=== PATIENT | male | born 1995 ===

== ENCOUNTER 2018-06-28 11:14 | Outpatient (CLI) | payer OTHER ==
[~2018-06-28] VITALS: Ht 185.4 cm; Wt 102.1 kg
== END 2018-06-28 11:30 | disposition home or self-care (01) ==
LOC: OFIC 805 11:14
DX: H73.892 Other specified disorders of tympanic membrane, left ear (principal); H91.8X2 Other specified hearing loss, left ear

== ENCOUNTER 2019-07-10 10:44 | Outpatient (CLI) | payer OTHER | END 2019-07-10 10:55 | disposition home or self-care (01) | LOC: RAD 10:44 | DX: M25.462 Effusion, left knee (principal) ==